=== PATIENT | female | born 2000 | race Caucasian/White ===

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

== ENCOUNTER 2020-05-28 15:50 | Emergency (ER) | payer MEDICAID ==
[~2020-05-28] VITALS: Ht 167.6 cm; Wt 59.1 kg
[2020-05-28 16:02] VITALS: BP 115/68
--- NOTE | 2020-05-28 16:21 | PHYS DOC ---
Past History Past Medical History: No Pertinent History, Other Additional Past Medical Histor: ITP Past Surgical History: No Surgical History Alcohol Use: None Adult General Chief Complaint Chief Complaint: FINGER INJURY HPI HPI Patient is a healthy 20-year-old female presenting for cuticle infection. Onset was 3 days ago. Pain is focal to her right hand ring finger cuticle with mild involvement and nailbed. States it is becoming more red, erythematous and painful. She has not done anything to it, has not tried to express pus herself. Admits while in hot shower that it drained spontaneously yesterday. She is here concern for need of antibiotics and/or incision and drainage Review of Systems Review of Systems Fourteen body systems of review of systems have been reviewed. See HPI for pertinent positives and negative responses, other robbins all other systems are negative, non-pertinent or non-contributory Allergies Allergies Allergies Coded Allergies Type Severity Reaction Last Updated Verified No Known Drug Allergies 05/28/20 No Physical Exam Physical Exam Constitutional: Well developed, well nourished, no acute distress, non-toxic appearance. HENT: Normocephalic, atraumatic, bilateral external ears normal, oropharynx moist, no oral exudates, nose normal. Eyes: PERRLA, EOMI, conjunctiva normal, no discharge. Neck: Normal range of motion, no tenderness, supple, no stridor. Cardiovascular: Heart rate regular per monitor Lungs & Thorax: No respiratory distress or accessory muscle use, bilateral chest rise Abdomen: Abdomen soft, non-tender, bowel sounds present in all quadrants, no guarding or rebound, nonacute abdomen. Skin: Warm, dry, no erythema, no rash. Simple cuticle infection on her right hand ring finger side involving the lateral aspect of nail bed only. Approximately 1 cm total diameter of erythema without obvious pus formation or subcutaneous abscess. No indication for oral antibiotics and/or incision and drainage Back: No tenderness, no CVA tenderness. Extremities: No tenderness, no cyanosis, no clubbing, ROM intact, no edema. Neurologic: Alert and oriented X 3, grossly normal motor & sensory function, no focal deficits noted. Psychologic: Affect normal, judgement normal, mood normal. Current Patient Data Vital Signs Vital Signs Date Time Temp Pulse Resp B/P (MAP) Pulse Ox O2 Delivery O2 Flow Rate FiO2 05/28/20 16:02 97.9 67 18 115/68 (84) 97 EKG EKG [] Radiology/Procedures Radiology/Procedures [] Heart Score HEART Score for Chest Pain: HEART Score for Chest Pain Response (Comments) Value History Slighlty/Non-Suspicious 0 Age < 45 0 Total 0 Risk Factors: Risk Factors: DM, Current or recent (<one month) smoker, HTN, HLP, family history of CAD, obesity. Risk Scores: Risk Factors: DM, Current or recent (<one month) smoker, HTN, HLP, family history of CAD, obesity. Course & Med Decision Making Course & Med Decision Making Discussed with the patient all findings and diagnostic testing. I discussed most likely diagnosis of paronychia that does not require incision and drainage and/or oral antibiotics at this time. I advised continued supportive care with warm compresses, topical antibiotic creams as necessary and close outpatient follow-up. I stressed need for close outpatient follow-up to review today's ER visit. Strict return precautions were also discussed at length with good understanding by patient. Patient voiced understanding and agreement with the plan. Patient knows to come back for repeat evaluation if concerning signs or symptoms present prior to outpatient follow-up. Hemodynamically stable, ambulatory and well-appearing at time of disposition. Dragon Disclaimer Dragon Disclaimer This electronic medical record was generated, in whole or in part, using a voice recognition dictation system. Departure Departure: Impression: Primary Impression: Paronychia of right ring finger Disposition: 01 DC HOME SELF CARE/HOMELESS Condition: STABLE Referrals: JEET COTTRELL MD (PCP) Patient Instructions: Paronychia Additional Instructions: As discussed prior to ER departure, please ensure you use daily warm compresses, soaks and elevate hand in question. If needed, you can utilize a topical antibiotic ointment such as bacitracin, mupirocin or Neosporin but this is not necessary given current clinical picture. There is no fluctuance or purulence identified requiring incision and drainage at this time. There is no current indication for by mouth antibiotics. Please call your primary care physician first thing after ER departure to set up outpatient follow-up in upcoming 3 to 7 days after ER departure for repeat evaluation. If any concerning signs or symptoms present prior to outpatient follow-up please do not hesitate to come back for repeat examination Is a pleasure to take care of you and I wish you the best going forward SPENCER CHENG DO May 28, 2020 16:21
== END 2020-05-28 16:24 | disposition home or self-care (01) ==
LOC: ER 15:50
DX: L03.011 Cellulitis of right finger (principal)
CPT/HCPCS: 99282

== ENCOUNTER 2020-11-04 13:04 | Emergency (ER) | payer MEDICAID ==
[~2020-11-04] VITALS: Ht 167.6 cm; Wt 59.1 kg
--- NOTE | 2020-11-04 14:40 | EKG ---
[address] [address] Test Date: 2020-11-04 Test Time: 13:49:03 Pat Name: ERIC CASEY Department: Room: Gender: F Card Feeder: COLE : 2000 Requested By: XIOMARA LEA Order Number: [id number] Reading MD: Armand Russell Measurements Intervals Buhl Rate: 101 P: 59 OR: 154 QRS: 49 QRSD: 68 T: 24 QT: 314 QTc: 408 Interpretive Statements SINUS TACHYCARDIA Electronically Signed On 11-04-2020 14:53:10 CDT by Armand Russell
[2020-11-04 14:52] LABS: BILIRUBIN,URINE NEG (NEG); CLARITY,URINE CLEAR; COLOR,URINE YELLOW; GLUCOSE,URINE NEG (NEG); NITRITE,URINE NEG (NEG); UROBILINOGEN,URINE 0.2 mg/dL (0.2 mg/dL)
[2020-11-04 14:53] LABS: AMMONIUM BIURATE PRESENT /HPF; BACTERIA,URINE FEW /HPF (0-FEW); RBC,URINE 0 /HPF (0-2); SQUAMOUS EPITHELIAL CELL,UR FEW /LPF; WBC,URINE OCC /HPF (0-4)
[2020-11-04] MEDS ORDERED: IPRATRPIUM/ALBUTEROL 0.5/2.5MG 3 ML NEBU. NEB ONE (15:00)
[2020-11-04 15:07] LABS: BASO % 0 % (0-3); EOS % 0 % (0-3); HEMATOCRIT 33.6 % (36.0-47.0); HEMOGLOBIN 10.9 g/dL (12.0-15.5); LYMPH # 1.5 x10^3/uL (1.0-4.8); LYMPH % 8 % (24-48); MEAN CORPUSCULAR HEMOGLOBIN 25 pg (25-35); MEAN CORPUSCULAR HGB CONC 32 g/dL (31-37); MEAN CORPUSCULAR VOLUME 76 fL (79-100); MONO % 6 % (0-9); NEUT # 15.4 x10^3uL (1.8-7.7); NEUT % 86 % (31-73); PLATELET COUNT 240 x10^3/uL (140-400); RED BLOOD COUNT 4.42 x10^6/uL (3.50-5.40); RED CELL DISTRIBUTION WIDTH 18.2 % (11.5-14.5)
--- NOTE | 2020-11-04 15:10 | RAD ---
Chest, PA and Lateral: Technique: PA and lateral views of the chest were obtained. History: Cough, wheezing. Comparison: None. Findings/ impression: The heart size grossly appears unremarkable. Bibasilar lung consolidation changes likely pneumonia or infiltrates or atypical/viral pneumonia. Follow-up to resolution. Electronically signed by: Dewey Marrero MD (11/04/2020 3:08 PM) [id number]
[2020-11-04 15:18] LABS: CALCIUM 9.1 mg/dL (8.5-10.1); CREATININE 0.6 mg/dL (0.6-1.0); GFR 127.5; POTASSIUM 3.9 mmol/L (3.5-5.1)
[2020-11-04 15:23] LABS: ALBUMIN 2.7 g/dL (3.4-5.0); ALBUMIN/GLOBULIN RATIO 0.6 (1.0-1.7); TOTAL BILIRUBIN 0.2 mg/dL (0.2-1.0); TOTAL PROTEIN 7.1 g/dL (6.4-8.2)
[2020-11-04 15:34] LABS: % BASOS 2 % (0-3); % EOS 3 % (0-5); % LYMPHS 6 % (24-48); % MONOS 5 % (0-10); % SEGS 84 % (35-66); ANISOCYTOSIS SLIGHT; PLT ESTIMATE ADEQUATE (ADEQUATE)
--- NOTE | 2020-11-04 16:13 | RAD ---
Study: US OB LIMITED Clinical Indication: Acute pneumonia. No care. Dates uncertain. Comparison: No comparison study is available during this gestation. Prior obstetrical ultrasound 03/06 Technique: Multiple grayscale images, color Doppler, and M-mode images of the uterus are obtained. Findings: Single live intrauterine gestation in transverse presentation with the head directed to the mat ernal right. The placenta is anterior in location without placenta previa. Amniotic fluid index of 14 .9 cm. Closed cervic measuring 3 cm in length. Biometrical data: BPD = 5.64 cm for 23 weeks 2 days HC = 21.23 cm for 23 weeks 2 days AC = 19.16 cm for 23 weeks 6 days FL = 3.97 cm for 22 weeks 6 days CI ratio = 79.2 HC/AC ratio = 1.11 FL/HC ratio = 18.7 FL/AC ratio = 20.7 The estimated sonographic gestational age is 23 weeks 2 days for a delivery date of 03/01/2021. Estima slick weight of 590 grams +/- 87. 4 chamber heart with cardiac activity. The heart rate of 145 beats per minute. Bilateral upper and lower extremities are identified. Three-vessel cord. A complete survey was not performed. Images were submitted of the nose/lips, profile to include the nasal bone, cerebellum and bladder. Impression: 1. Single live intrauterine gestation with estimated sonographic gestational age of 23 weeks 2 days corresponding to a delivery date of 03/01/2021. weight estimate of 590 g +/- 87 g. 2. Transverse presentation at this time. Anterior placenta without previa. Within normal limits amni otic fluid volume. Closed cervix measuring 3 cm in length. 3. A complete survey was not performed. No malformation identified on the submitted images. Co ntinued follow-up is recommended. Electronically signed by: KATIE CLAYTON MD (11/04/2020 4:11 PM) [facility]
[2020-11-04 16:30] VITALS: BP 121/56
[2020-11-04] MEDS ORDERED: PNV1TABL25 PO (16:52)
[2020-11-04] MEDS ORDERED: AZIT250T6 PO (16:52)
[2020-11-04] MEDS ORDERED: ALBU2.5V5 NEB (16:52)
--- NOTE | 2020-11-04 16:52 | PHYS DOC ---
Past History Past Medical History: Other Additional Past Medical Histor: ITP (XIOMARA LEA APRN) Past Surgical History: Other Additional Past Surgical Histo: D&C (XIOMARA LEA APRN) Alcohol Use: None (XIOMARA LEA APRN) Adult General Chief Complaint Chief Complaint: CHEST PAIN HPI HPI Patient is a 20-year-old female presents emergency department complaining of cough and congestion for the past 3 weeks. Patient states that her chest started to hurt over the past 3 days. Patient reports anterior chest pain all over that she rates between a 1 and a 5 whether or not she is breathing deeply or currently coughing. Patient states she has had hot and cold chills at home however does not have a thermometer so she is unsure she has had any fevers. Patient states she is , states she has not had a period since the first week of April. Patient reports a positive home test 2 weeks ago. Patient denies any abdominal pain, nausea, vomiting, seeing blood in her stool or blood in her urine. Patient denies any urinary tract signs and symptoms. Patient denies vaginal discharge, denies vaginal bleeding. Denies pelvic pain. Patient states she does have a history of asthma, has never been followed up with a primary care physician for her asthma, states she gets her asthma medications at [facility] because she has no insurance. Patient states this is her third , has 1 living child, had a miscarriage in January 2020. Patient states her cough is a dry cough even though she does feel congested. P atient denies throat pain, denies ear pain. Patient denies dizziness, denies headaches. Patient states she has a cigarette smoker, denies alcohol use, denies illicit drug use. Patient denies any other physical complaints or physical concerns. (XIOMARA LEA APRN) Review of Systems Review of Systems 14 body systems of review of systems have been reviewed. See HPI for pertinent positives and negative responses, otherwise all other systems are negative, nonpertinent or noncontributory. (XIOMARA LEA APRN) Current Medications Current Medications Current Medications Medications (Trade) Dose Ordered Sig/Rosalba Start Time Stop Time Status Last Admin Dose Admin Albuterol/ Ipratropium (Duoneb) 3 ml 1X ONCE 11/04/20 15:00 11/04/20 15:06 DC 11/04/20 15:11 3 ML (XIOMARA LEA APRN) Allergies Allergies Allergies Coded Allergies Type Severity Reaction Last Updated Verified No Known Drug Allergies 05/28/20 No (XIOMARA LEA APRN) Physical Exam Physical Exam Constitutional: Well developed, well nourished, no acute distress, non-toxic appearance. 20-year-old female in no apparent distress. HENT: Normocephalic, atraumatic, bilateral external ears normal, oropharynx moist, no oral exudates, nose normal. Bilateral TMs within normal limits, intact. No uvular edema, no laryngeal edema, no deep tissue infectious process appreciated of the oropharynx. There is no postnasal drip. Eyes: PERRLA, EOMI, conjunctiva normal, no discharge. Neck: Normal range of motion, no tenderness, supple, no stridor. No meningismus signs, no nuchal rigidity. Cardiovascular:Heart rate regular rhythm, no murmur, heart sounds S1-S2 to auscultation. Lungs & Thorax: I/E wheezing all lung angulo per auscultation, no audible wheezing appreciated. Abdomen: Bowel sounds normal, soft, no tenderness, no masses, no pulsatile masses. Fundal height 1 cm below umbilicus. Skin: Warm, dry, no erythema, no rash. Back: No tenderness, no CVA tenderness. Extremities: No tenderness, no cyanosis, no clubbing, ROM intact, no edema. Neurologic: Alert and oriented X 3, normal motor function, normal sensory function, no focal deficits noted. Psychologic: Affect normal, judgement normal, mood normal. (XIOMARA LEA APRN) Current Patient Data Vital Signs Vital Signs Date Time Temp Pulse Resp B/P (MAP) Pulse Ox O2 Delivery O2 Flow Rate FiO2 11/04/20 16:30 98.2 102 16 121/56 (77) 97 Room Air Lab Results Laboratory Tests Test 11/04/20 13:11 11/04/20 14:22 11/04/20 14:28 White Blood Count 18.0 x10^3/uL (4.0-11.0) H Red Blood Count 4.42 x10^6/uL (3.50-5.40) Hemoglobin 10.9 g/dL (12.0-15.5) L Hematocrit 33.6 % (36.0-47.0) L Mean Corpuscular Volume 76 fL (79-100) L Mean Corpuscular Hemoglobin 25 pg (25-35) Mean Corpuscular Hemoglobin Concent 32 g/dL (31-37) Red Cell Distribution Width 18.2 % (11.5-14.5) H Platelet Count 240 x10^3/uL (140-400) Neutrophils (%) (Auto) 86 % (31-73) H Lymphocytes (%) (Auto) 8 % (24-48) L Monocytes (%) (Auto) 6 % (0-9) Eosinophils (%) (Auto) 0 % (0-3) Basophils (%) (Auto) 0 % (0-3) Neutrophils # (Auto) 15.4 x10^3uL (1.8-7.7) H Lymphocytes # (Auto) 1.5 x10^3/uL (1.0-4.8) Monocytes # (Auto) 1.0 x10^3/uL (0.0-1.1) Eosinophils # (Auto) 0.0 x10^3/uL (0.0-0.7) Basophils # (Auto) 0.0 x10^3/uL (0.0-0.2) Segmented Neutrophils % 84 % (35-66) H Lymphocytes % 6 % (24-48) L Monocytes % 5 % (0-10) Eosinophils % 3 % (0-5) Basophils % 2 % (0-3) Platelet Estimate Adequate (ADEQUATE) Anisocytosis Slight Maternal Serum HCG Beta Subunit 81090 mIU/mL (0-6) H Sodium Level 137 mmol/L (136-145) Potassium Level 3.9 mmol/L (3.5-5.1) Chloride Level 103 mmol/L (98-107) Carbon Dioxide Level 24 mmol/L (21-32) Anion Gap 10 (6-14) Blood Urea Nitrogen 5 mg/dL (7-20) L Creatinine 0.6 mg/dL (0.6-1.0) Estimated GFR (Cockcroft-Gault) 127.5 BUN/Creatinine Ratio 8 (6-20) Glucose Level 87 mg/dL (70-99) Calcium Level 9.1 mg/dL (8.5-10.1) Total Bilirubin 0.2 mg/dL (0.2-1.0) Aspartate Amino Transferase (AST) 10 U/L (15-37) L Alanine Aminotransferase (ALT) 13 U/L (14-59) L Alkaline Phosphatase 140 U/L (46-116) H Troponin I Quantitative < 0.017 ng/mL (0-0.055) Total Protein 7.1 g/dL (6.4-8.2) Albumin 2.7 g/dL (3.4-5.0) L Albumin/Globulin Ratio 0.6 (1.0-1.7) L Urine Collection Type Unknown Urine Color Yellow Urine Clarity Clear Urine pH 8.5 Urine Specific [place] 1.015 Urine Protein Neg (NEG-TRACE) Urine Glucose (UA) Neg mg/dL (NEG) Urine Ketones (Stick) Neg mg/dL (NEG) Urine Blood Neg (NEG) Urine Nitrite Neg (NEG) Urine Bilirubin Neg (NEG) Urine Urobilinogen Dipstick 0.2 mg/dL (0.2 mg/dL) Urine Leukocyte Esterase Trace (NEG) Urine RBC 0 /HPF (0-2) Urine WBC Occ /HPF (0-4) Urine Squamous Epithelial Cells Few /LPF Urine Ammonium Biurate Crystals Present /HPF Urine Bacteria Few /HPF (0-FEW) POC Urine HCG, Qualitative hcg positive (Negative) (XIOMARA LEA APRN) EKG EKG EKG performed at 1349 by house respiratory therapy staff shows sinus tachycardia with a heart rate of 101 bpm, DC interval 0.154, QTc interval 0.408, no other ectopy appreciated, no acute STEMI, no ACS, no acute ischemia appreciated, EKG i nterpreted by ED attending physician Dr. Cheng. (XIOMARA LEA APRN) Radiology/Procedures Radiology/Procedures PATIENT: ERIC CASEY ACCOUNT: [id number] : 2000 LOCATION: ER AGE: 20 SEX: F EXAM STATUS: REG ER ORD. PHYSICIAN: XIOMARA LEA APRN REASON: COUGH, WHEEZING, CHEST PAIN PROCEDURE: CHEST PA & LATERAL Chest, PA and Lateral: Technique: PA and lateral views of the chest were obtained. History: Cough, wheezing. Comparison: None. Findings/ impression: The heart size grossly appears unremarkable. Bibasilar lung consolidation changes likely pneumonia or infiltrates or atypical/viral pneumonia. Follow-up to resolution. Electronically signed by: Dewey Marrero MD (11/04/2020 3:08 PM) [id number] DICTATED AND SIGNED BY: DEWEY MARRERO MD DATE: 11/04/20 1506 CC: XIOMARA LEA APRN; SPENCER CHENG DO; JEET COTTRELL MD ~MTH0 0 PATIENT: ERIC CASEY ACCOUNT: [id number] : 2000 LOCATION: ER AGE: 20 SEX: F EXAM STATUS: REG ER ORD. PHYSICIAN: XIOMARA LEA APRN REASON: ACUTE PNEUMONIA, NO CARE, UNSURE OF DATES PROCEDURE: OB LIMITED Study: US OB LIMITED Clinical Indication: Acute pneumonia. No care. Dates uncertain. Comparison: No comparison study is available during this gestation. Prior obstetrical ultrasound 03/22/2019 Technique: Multiple grayscale images, color Doppler, and M-mode images of the uterus are obtained. Findings: Single live intrauterine gestation in transverse presentation with the head directed to the maternal right. The placenta is anterior in location without placenta previa. Amniotic fluid index of 14.9 cm. Closed cervic measuring 3 cm in length. Biometrical data: BPD = 5.64 cm for 23 weeks 2 days HC = 21.23 cm for 23 weeks 2 days AC = 19.16 cm for 23 weeks 6 days FL = 3.97 cm for 22 weeks 6 days CI ratio = 79.2 HC/AC ratio = 1.11 FL/HC ratio = 18.7 FL/AC ratio = 20.7 The estimated sonographic gestational age is 23 weeks 2 days for a delivery date of 03/01/2021. Estimated weight of 590 grams +/- 87. 4 chamber heart with cardiac activity. The heart rate of 145 beats per minute. Bilateral upper and lower extremities are identified. Three-vessel cord. A complete survey was not performed. Images were submitted of the nose/lips, profile to include the nasal bone, cerebellum and bladder. Impression: 1. Single live intrauterine gestation with estimated sonographic gestational age of 23 weeks 2 days corresponding to a delivery date of 03/01/2021. weight estimate of 590 g +/- 87 g. 2. Transverse presentation at this time. Anterior placenta without previa. Within normal limits amniotic fluid volume. Closed cervix measuring 3 cm in length. 3. A complete survey was not performed. No malformation identified on the submitted images. Continued follow-up is recommended. Electronically signed by: KATIE CLAYTON MD (11/04/2020 4:11 PM) [facility] (XIOMARA LEA APRN) Heart Score C/O Chest Pain: Yes HEART Score for Chest Pain: HEART Score for Chest Pain Response (Comments) Value History Slighlty/Non-Suspicious 0 ECG Normal 0 Age < 45 0 Risk Factors 1 or 2 Risk Factors 1 Troponin < Normal Limit 0 Total 1 Risk Factors: Risk Factors: DM, Current or recent (<one month) smoker, HTN, HLP, family history of CAD, obesity. Risk Scores: Risk Factors: DM, Current or recent (<one month) smoker, HTN, HLP, family history of CAD, obesity. (XIOMARA LEA APRN) Course & Med Decision Making Course & Med Decision Making Pertinent Labs and Imaging studies reviewed. (See chart for details) 20-year-old female, vitals reviewed, presents emergency department concerning chest pain after a reported 3-week cough. Physical examination concerning for acute asthma attack versus other acute pulmonary process. The patient states she is however has had no OB follow-up since her positive home test. Will order chest x-ray to rule out acute respiratory process, discussed with patient x-ray dialysis chief equipment technician can shield abdomen, patient is amenable to this plan. Will order DuoNeb treatment for auscultated i.e. wheezing. Will order heart tones, EKG, troponin, CBC, CMP, urinalysis assay, beta hCG level, urine test. Upon reevaluation of the patient after breathing treatment, lung sounds clear to auscultation all lung angulo, patient reports chest pain has been relieved since her breathing treatment. Patient remains nontoxic in appearance, is in no respiratory distress. Patient's chest x-ray concerning for atypical bibasilar pneumonia. Patient's beta hCG pending at this time, related to patient between second and third trimester will order ultrasound to rule out distress. Patient amenable to this plan. Blood cultures x2 were drawn. Patient has 18,000 white count., EKG within normal limits, troponin within normal limits. Abdominal ultrasound reveals 23-week 2-day single live IUP with EDC of 03/01/2021. Related to patient's diagnosis atypical pneumonia, no current OB care, SYNOPTIC METEOROLOGIST specialist physician Dr. Miramontes was consulted. Discussed patient case with Dr. Miramontes who recommended azithromycin treatment outpatient for atypical pneumonia, strict follow-up tomorrow in his office for evaluation of , Dr. Miramontes states to have patient call office in the morning for appointment. Dr. Miramontes recommends patient can go home with the information he was provided by me over the phone. Discussed with patient Dr. Bello recommendations, patient states she does not want to go to [facility] for OB care or see Dr. Miramontes, patient states she wants to see somebody at [facility], patient states she has her SYNOPTIC METEOROLOGIST contact information at home but cannot recall the doctors name at this time. Patient did give verbal confirmation of strict OB follow-up tomorrow, discussed with patient cigarette smoking cessation, atypical pneumonia and treatment with azithromycin, will give prescription for vitamin, albuterol nebulize treatment medication, Z-Kobe for home. Will start first dose of azithromycin in ED today prior to discharge. Patient gave verbal understanding of discharge home instructions, strict follow- up with OB care tomorrow, prescription medication use, return to ER precautions or concerns, patient remained nontoxic at time of discharge, is in no respiratory distress, lung sounds clear to auscultation all lung angulo, patient states she feels better now and wishes to go home, patient was discharged home without incident. (XIOMARA LEA APRN) Course & Med Decision Making I oversaw on the above date of service of this patient and discussed the care with the MATCHER OPERATOR. I recommended further diagnostic work-up based on symptom course despite well clinical appearance and directed care to involve consultation with SYNOPTIC METEOROLOGIST. I agree with the stated findings, plan of care, and disposition as documented. Electronically signed, Spencer Cheng DO (SPENCER CHENG DO) Ameya Disclaimer Ameya Disclaimer This electronic medical record was generated, in whole or in part, using a voice recognition dictation system. (XIOMARA LEA APRN) Departure Departure: Impression: Primary Impression: Atypical pneumonia Additional Impressions: Second trimester Cigarette smoker Asthma attack Disposition: HOME / SELF CARE / HOMELESS Condition: GOOD Referrals: JEET COTTRELL MD (PCP) XIOMARA MIRAMONTES MD Patient Instructions: ABCs of , Pneumonia, Adult, - Smoking Additional Instructions: You are seen in the emergency department today for shortness of breath or chest pain. Your EKG did not show any concerning findings, however your chest x-ray revealed an atypical pneumonia which I am treating you with the antibiotic called azithromycin. I have given your first dose in the emergency department, please start the prescription tomorrow. I am also prescribing you a vitamin. Please follow-up with OB Dr. Miramontes or the OB of your choice tomorrow. Let them know you are beta hCG level today was 16,610. You have a 23-week 2-day single live intrauterine with an EDC of 03/01. Please return to the emergency department for worsening symptoms or other concerns. EMERGENCY DEPARTMENT GENERAL DISCHARGE INSTRUCTIONS Thank you for coming to [facility] (ED) today and trusting us with you care. We trust that you had a positivie experience in our Emergency Department. If you wish to speak to the department management, you may call the director at [phone]. YOUR FOLLOW UP INSTRUCTIONS ARE FOLLOWS: 1. Do you have a private Doctor? If you do not have a private doctor, please a sk for a resource list of physicians or clinics that may be able to assist you with follow up care. 2. The Emergency Physician has interpreted your x-rays. The X-Ray specialist will also review them. If there is a change in the findings, you will be notified in 48 hours when at all possible. 3. A lab test or culture has been done, your results will be reviewed and you will be notified if you need a change in treatment. ADDITIONAL INSTRUCTIONS AND INFORMATION: 1. Your care today has been supervised by a physician who is specially trained in emergency care. Many problems require more than one evaluation for a complete diagnosis and treatment. We recommend that you schedule your follow up appointment as recommended to ensure complete treatment of you illness or injury. If you are unable to obtain follow up care and continue to have a problem, or if your condition worsens, we recommend that you return to the ED. 2. We are not able to safely determine your condition over the phone nor are we able to give sound medical advice over the phone. For these safety reasons, if you call for medical advice we will ask you to come to the ED for further evaluation. 3. If you have any questions regarding these discharge instructions please call the ED at [phone]. SAFETY INFORMATION: In the interest of safety, wellness, and injury prevention; we encourage you to wear your sealbelt, if you smoke; quite smoking, and we encourage family to use a protective helmet for bicycling and other sporting events that present an increased risk for head injury. IF YOUR SYMPTOMS WORSEN OR NEW SYMPTOMS DEVELOP, OR YOU HAVE CONCERNS ABOUT YOUR CONDITION; OR IF YOUR CONDITION WORSENS WHILE YOU ARE WAITING FOR YOUR FOLLOW UP APPOINTMENT; EITHER CONTACT YOUR PRIMARY CARE DOCTOR, THE PHYSICIAN WHOSE NAME AND NUMBER YOU WERE GIVEN, OR RETURN TO THE ED IMMEDIATELY. Scripts Albuterol Sulfate (ALBUTEROL SULFATE NEB SOLN ) 2.5 Mg/3 Ml Vial.neb 1 VIAL NEB PRN Q4HRS for ACUTE ASTHMA , #50 VIAL Prov: XIOMARA LEA APRN 11/04/20 Pnv Cmb#95/Ferrous Fumarate/Fa ( TABLET) 1 Each Tablet 1 TAB PO DAILY for for 30 Days, #30 TAB 0 Refills Prov: XIOMARA LEA APRN 11/04/20 Azithromycin (AZITHROMYCIN TABLET) 250 Mg Tablet 1 PKG PO UD for ATYPICAL PNEUMONIA for 5 Days, #6 TAB 0 Refills 2 the first day followed by 1 for days 2-5 Prov: XIOMARA LEA APRN 11/04/20 Problem Qualifiers Additional Impressions: Asthma attack Asthma severity: mild Asthma persistence: intermittent Qualified Codes: J45.21 - Mild intermittent asthma with (acute) exacerbation XIOMARA LEA APRN Nov 04, 2020 16:52 SPENCER CHENG DO Nov 05, 2020 14:59
[2020-11-04] MEDS ORDERED: AZITHROMYCIN 250 MG TABLET. PO ONE (17:00)
== END 2020-11-04 17:07 | disposition home or self-care (01) ==
LOC: ER 13:04
DX: O99.512 Diseases of the respiratory system complicating pregnancy, second trimester (principal); J18.9 Pneumonia, unspecified organism; J45.21 Mild intermittent asthma with (acute) exacerbation; O99.332 Smoking (tobacco) complicating pregnancy, second trimester; Z3A.23 23 weeks gestation of pregnancy
CPT/HCPCS: 36415; 71046; 76815; 80053; 81001; 81025; 84484; 84702; 85007; 85025; 87040; 87086; 87205; 93005; 94640; 99285

== ENCOUNTER → 2020-12-03 | Outpatient (CLI) | payer MEDICAID ==
[2020-11-04 16:30] VITALS: BP 121/56
[~2020-12-03] MED LIST: ALBU2.5V5 NEB; AZIT250T6 PO; PNV1TABL25 PO
--- NOTE | 2020-12-03 12:02 | RAD ---
EXAM: OB ULTRASOUND, > 14 WEEKS HISTORY: Encounter for -related examination. COMPARISON: 11/04/2020. TECHNIQUE: Multiple grayscale images, color Doppler, and M-mode images of the uterus are obtained. FINDINGS: There is a single intrauterine gestation in cephalic presentation. The placenta is anterior in locati on without evidence of placenta previa. The amount of amniotic fluid appears appropriate. Amniotic f luid index is 18.9 cm. Cervical length is 4.6 cm. Biometrical data: BPD = 7.0 cm for 28 weeks 0 days. HC = 26.2 cm for 28 weeks 4 days. AC = 23.2 cm for 27 weeks 4 days. FL = 5.0 cm for 26 weeks 6 days. HC/AC ratio = 1.1. Overall, the estimated sonographic gestational age is 27 weeks and 5 days for an estimated date of de livery of 02/27/2021. The estimated date of delivery provided by the last menstrual period is . Estimated weight is 1069 grams. A 4 chamber heart is identified with positive cardiac activity. The estimated heart rate is 149 beats per minute. Bilateral upper and lower extremities are identified. There is a three-vessel cord with cord insertion visualized. stomach and urinary bladder are identified. Both kidneys are seen. The spine and brain are unremarkable. No obvious anatomic abnormalities are identified. The maternal adnexal regions are unremarkable. IMPRESSION: 1. Single intrauterine fetus in cephalic presentation with a normal heart rate and gestational age ba sed on ultrasound measurements of 27 weeks and 5 days. The estimated weight corresponds with th e 47th percentile for a gestational age of 27 weeks and 3 days based on LMP. 2. Unremarkable anatomy survey. Electronically signed by: Miri Rosales MD (12/03/2020 11:59 AM) [id number]
== END ==
LOC: US 10:03
PROVIDERS: ATTEND Obstetrics & Gynecology
DX: Z34.92 Encounter for supervision of normal pregnancy, unspecified, second trimester (principal); Z3A.27 27 weeks gestation of pregnancy
CPT/HCPCS: 76805